=== PATIENT | male | born 2000 | race Caucasian/White ===

== ENCOUNTER 2024-01-02 10:32 | Emergency (ER) | payer OTHER ==
[~2024-01-02] VITALS: Ht 172.7 cm; Wt 61.4 kg
[2024-01-02] MEDS ORDERED: IBUP200C33 PO (10:44)
[2024-01-02 12:18] LABS: BASO % 0.4 % (0.0-1.0); EOS # 0.1 10^3/uL (0.0-0.5); EOS % 1.5 % (0.0-3.0); HEMATOCRIT 45.8 % (42.0-52.0); HEMOGLOBIN 15.5 g/dl (13.5-17.5); LYMPH % 37.7 % (24.0-44.0); MEAN CORPUSCULAR HEMOGLOBIN 30.3 pg (27.0-33.0); MEAN CORPUSCULAR HGB CONC 33.8 g/dl (32.0-36.5); MEAN CORPUSCULAR VOLUME 89.5 fl (80.0-96.0); MONO # 0.6 10^3/uL (0.0-0.8); MONO % 10.7 % (2.0-8.0); NEUTROPHILS # 2.6 10^3/uL (1.5-8.5); NEUTROPHILS % 49.5 % (36.0-66.0); PLATELET COUNT, AUTOMATED 187 10^3/uL (150-450); RED BLOOD COUNT 5.12 10^6/uL (4.30-6.10); WHITE BLOOD COUNT 5.3 10^3/uL (4.0-10.0)
[2024-01-02 12:23] LABS: ERYTHROCYTE SEDIMENTATION RATE 23 mm/hr (0-15)
[2024-01-02 12:34] LABS: INR 1.07; PARTIAL THROMBOPLASTIN TIME 27.8 SECONDS (24.8-34.2); PROTHROMBIN TIME 13.6 SECONDS (12.5-14.5)
[2024-01-02 12:45] LABS: ALBUMIN 4.8 G/DL (3.2-5.2); ALKALINE PHOSPHATASE 196 U/L (46-116); ALT/SGPT 117 U/L (7.0-40); AST/SGOT 80 U/L (<34); BILIRUBIN,DIRECT 0.3 MG/DL (<0.4); BILIRUBIN,TOTAL 0.9 MG/DL (0.3-1.2); BLOOD UREA NITROGEN 18 MG/DL (9-23); CALCIUM LEVEL 9.3 MG/DL (8.5-10.1); CARBON DIOXIDE LEVEL 26 MMOL/L (20-31); CHLORIDE LEVEL 103 MMOL/L (98-107); CREATININE FOR GFR 0.78 MG/DL (0.70-1.30); GLOMERULAR FILTRATION RATE > 60.0 (>60); GLUCOSE, FASTING 69 MG/DL (60-100); SODIUM LEVEL 135 MMOL/L (136-145); TOTAL PROTEIN 8.7 G/DL (5.7-8.2)
[2024-01-02 12:56] LABS: PROCALCITONIN 0.11 ng/ml
[2024-01-02] MEDS ORDERED: ISOVUE-370 76% 100ML VIAL As Ordered ONE (14:58)
[2024-01-02 16:01] LABS: MONO REFLEX EBV COMP NEGATIVE (NEGATIVE)
[2024-01-02] MEDS ORDERED: PRED20TA PO (17:26)
[2024-01-02] MEDS ORDERED: MOTR200T44 PO (17:26)
[2024-01-02 17:33] VITALS: BP 116/69; TEMP 96.7; O2SAT 100
== END 2024-01-02 17:36 | disposition home or self-care (01) ==
LOC: M ED 10:32
DX: R59.0 Localized enlarged lymph nodes (principal); Z79.1 Long term (current) use of non-steroidal anti-inflammatories (NSAID); Z79.52 Long term (current) use of systemic steroids
CPT/HCPCS: 36415; 70491; 76536; 80048; 80076; 83605; 84145; 85025; 85610; 85652; 85730; 86140; 86308; 86664; 86665; 87040; 87486; 87581; 87633; 87798; 87880; 99284; Q9967

== ENCOUNTER → 2024-01-19 | Outpatient (CLI) | payer OTHER ==
[~2024-01-19] MED LIST: IBUP200C33 PO; LIDOCAINE 1% MDV 20ML VIAL As Ordered ONE; MOTR200T44 PO; PRED20TA PO
[2024-01-19 10:55] VITALS: TEMP 98
[2024-01-19 11:50] VITALS: BP 115/62; O2SAT 100
== END ==
LOC: M IRPRO 10:39
PROVIDERS: ATTEND Otolaryngology
DX: R59.0 Localized enlarged lymph nodes (principal)